=== PATIENT | male | born 1985 | race Caucasian/White ===

== ENCOUNTER 2022-09-20 17:43 | Emergency (ER) | payer OTHER ==
[~2022-09-20] VITALS: Ht 165.1 cm; Wt 61.2 kg
[~2022-09-20 17:43] MED LIST: NAPR500 PO; NEOPOLHCSU LEFTEAR; SULTRIDS PO
== END 2022-09-20 20:59 | disposition home or self-care (01) ==
LOC: ER 17:43
DX: S00.81XA Abrasion of other part of head, initial encounter (principal); R68.84 Jaw pain; F17.210 Nicotine dependence, cigarettes, uncomplicated; V24.41XA Electric (assisted) bicycle driver injured in collision with heavy transport vehicle or bus in traffic accident, initial encounter
CPT/HCPCS: 99284

== ENCOUNTER → 2023-03-03 | Outpatient (CLI) | payer OTHER | END | disposition home or self-care (01) | LOC: LAB SHORT 13:25 → LAB 13:25 | DX: L02.213 Cutaneous abscess of chest wall (principal) | CPT/HCPCS: 87070; 87075; 87205 ==

== ENCOUNTER 2025-05-15 04:53 | Emergency (ER) | payer OTHER ==
[~2025-05-15] VITALS: Ht 165.1 cm; Wt 70.3 kg
[2025-05-15 05:03] VITALS: BP 146/100
[2025-05-15] MEDS ORDERED: Bupivacaine 0.5% Inj 10 ML Vial SC ONE (05:05)
[2025-05-15] MEDS ORDERED: CEPH500 PO (05:30)
== END 2025-05-15 05:38 | disposition home or self-care (01) ==
LOC: ER 04:53
DX: K02.9 Dental caries, unspecified (principal); K04.7 Periapical abscess without sinus; F17.210 Nicotine dependence, cigarettes, uncomplicated
CPT/HCPCS: 64400; 99282-25; A9270